=== PATIENT | female | born 1950 | race Caucasian/White ===

== ENCOUNTER 2021-08-25 18:05 | Emergency (ER) | payer MEDICARE, BC ==
[2021-08-25 18:37] LABS: BASOPHILS # (AUTO) 0.1 10^3/uL (0.0-0.1); BASOPHILS % (AUTO) 1 % (0-10); EOSINOPHILS # (AUTO) 0.3 10^3/uL (0.0-0.3); EOSINOPHILS % (AUTO) 4 % (0-10); HEMATOCRIT 36 % (35-52); HEMOGLOBIN 11.3 g/dL (11.5-16.0); LYMPHOCYTES # (AUTO) 1.2 10^3/uL (1.0-4.0); LYMPHOCYTES % (AUTO) 15 % (12-44); MEAN CORPUSCULAR HEMOGLOBIN 30 pg (25-34); MEAN CORPUSCULAR HGB CONC 32 g/dL (32-36); MEAN CORPUSCULAR VOLUME 95 fL (80-99); MEAN PLATELET VOLUME 10.7 fL (9.0-12.2); MONOCYTES # (AUTO) 0.3 10^3/uL (0.0-1.0); MONOCYTES % (AUTO) 4 % (0-12); NEUTROPHILS # (AUTO) 6.2 10^3/uL (1.8-7.8); NEUTROPHILS % (AUTO) 76 % (42-75); PLATELET COUNT 198 10^3/uL (130-400); WHITE BLOOD COUNT 8.2 10^3/uL (4.3-11.0)
[2021-08-25 19:02] LABS: ALANINE AMINOTRANSFERASE 13 U/L (0-55); ALKALINE PHOSPHATASE 117 U/L (40-136); BILIRUBIN,TOTAL < 0.2 MG/DL (0.1-1.0); BUN/CREATININE RATIO 22; CALCIUM 8.7 MG/DL (8.5-10.1); CARBON DIOXIDE 27 MMOL/L (21-32); CHLORIDE 104 MMOL/L (98-107); CREATININE SERUM 1.87 MG/DL (0.60-1.30); GFR ESTIMATED 29; GLUCOSE 308 MG/DL (70-105); POTASSIUM 4.9 MMOL/L (3.6-5.0); SODIUM 140 MMOL/L (135-145)
[2021-08-25 19:03] LABS: ALBUMIN 3.1 GM/DL (3.2-4.5); TOTAL PROTEIN 6.6 GM/DL (6.4-8.2)
--- NOTE | 2021-08-25 19:10 | Diagnostic Imaging Report ---
CHEST 1 VIEW AP/PA ONLY Indication: Shortness of air. Comparison: None available. Findings: No focal airspace disease in the visualized lungs. Please note that the posterior lower lobes are poorly evaluated by portable radiography. No pleural effusion or pneumothorax. Normal cardiomediastinal silhouette. Impression: 1. No acute cardiopulmonary process by portable radiography. Dictated by: Dictated on workstation # [id number]
[2021-08-25] MEDS ORDERED: FUROSEMIDE 40 MG/4 ML INJ (LASIX) IVP ONE (19:15)
--- NOTE | 2021-08-25 19:21 | ED Cardiac General ---
History of Present Illness General Chief Complaint: Cardiac/General Problems Stated Complaint: KNEE SWOLLEN Nursing Triage Note: Patient presents to the ED with c/o bilateral leg weakness, edema, and recent fall. EMS reports facility staff reported fall 2 days ago and now patient is not wanting to bear any weight on her legs. Also report lower extremity edema that is weeping. Patient denies pain at this time. Source: patient Exam Limitations: no limitations History of Present Illness Date Seen by Provider: August 25, 2021 Time Seen by Provider: 18:00 Initial Comments Patient is a 71 year old female with B leg weakness and c/o bilateral weakness, edema, and recent fall 2 days ago. Patient cannot stand or walk without assistance. Patient lives in assisted care living facility. Timing/Duration: 1-3 hours Severity: moderate Location: other Activities at Onset: other Prior CP/Workup: other Modifying Factors: improves with other Associated Systoms: Other Allergies and Home Medications Allergies Coded Allergies: Penicillins (Verified Allergy, Unknown, 08/25/21) Patient Home Medication List Home Medication List Reviewed: Yes Review of Systems Review of Systems Constitutional: see HPI EENTM: See HPI Respiratory: See HPI Cardiovascular: See HPI Gastrointestinal: See HPI Genitourinary: See HPI Musculoskeletal: see HPI Skin: see HPI Psychiatric/Neurological: See HPI Endocrine: See HPI Hematologic/Lymphatic: See HPI All Other Systems Reviewed Negative Unless Noted: Yes Past Zeutxet-Gfhrrt-Vnxhah Hx Patient Social History Tobacco Use?: Yes Substance use?: No Alcohol Use?: No Pt feels they are or have been: No Immunizations Up To Date First/Initial COVID19 Vaccinat: Yes Second COVID19 Vaccination Faisal: Yes COVID19 Vaccine Collator Operator: Moderna Past Medical History Surgery/Hospitalization HX: Dementia; CKD; Osteoarthritis; Gout; GERD; HTN; Chronic Constipation, Anemia, DM Physical Exam Vital Signs Vital Signs - First Documented 08/25/21 18:05 Temp 36.9 Pulse 98 Resp 20 B/P (MAP) 160/74 (102) Pulse Ox 95 O2 Delivery Room Air Capillary Refill : Less Than 3 Seconds Height, Weight, BMI Height: '" Weight: lbs. oz. kg; BMI Method: General Appearance: No Apparent Distress, WD/WN HEENT: PERRL/EOMI, TMs Normal Neck: Non Tender, Supple Respiratory: Lungs Clear, Normal Breath Sounds Cardiovascular: Regular Rate, Rhythm, Other (Bipedal edema extending to proximal calves. Mild erythema) Gastrointestinal: Soft, Other (Obesity compromising exam) Neurologic/Psychiatric: Alert, Oriented x3, engineer intern II-XII Norm as Tested Skin: Normal Color Focused Exam Sepsis Stage: Ruled Out Progress/Results/Core Measures Results/Orders Lab Results Laboratory Tests Test 08/25/21 18:33 Range/Units White Blood Count 8.2 4.3-11.0 10^3/uL Red Blood Count 3.78 L 3.80-5.11 10^6/uL Hemoglobin 11.3 L 11.5-16.0 g/dL Hematocrit 36 35-52 % Mean Corpuscular Volume 95 80-99 fL Mean Corpuscular Hemoglobin 30 25-34 pg Mean Corpuscular Hemoglobin Concent 32 32-36 g/dL Red Cell Distribution Width 13.4 10.0-14.5 % Platelet Count 198 130-400 10^3/uL Mean Platelet Volume 10.7 9.0-12.2 fL Immature Granulocyte % (Auto) 1 % Neutrophils (%) (Auto) 76 H 42-75 % Lymphocytes (%) (Auto) 15 12-44 % Monocytes (%) (Auto) 4 0-12 % Eosinophils (%) (Auto) 4 0-10 % Basophils (%) (Auto) 1 0-10 % Neutrophils # (Auto) 6.2 1.8-7.8 10^3/uL Lymphocytes # (Auto) 1.2 1.0-4.0 10^3/uL Monocytes # (Auto) 0.3 0.0-1.0 10^3/uL Eosinophils # (Auto) 0.3 0.0-0.3 10^3/uL Basophils # (Auto) 0.1 0.0-0.1 10^3/uL Immature Granulocyte # (Auto) 0.0 0.0-0.1 10^3/uL Sodium Level 140 135-145 MMOL/L Potassium Level 4.9 3.6-5.0 MMOL/L Chloride Level 104 98-107 MMOL/L Carbon Dioxide Level 27 21-32 MMOL/L Anion Gap 9 5-14 MMOL/L Blood Urea Nitrogen 41 H 7-18 MG/DL Creatinine 1.87 H 0.60-1.30 MG/DL Estimat Glomerular Filtration Rate 29 BUN/Creatinine Ratio 22 Glucose Level 308 H 70-105 MG/DL Calcium Level 8.7 8.5-10.1 MG/DL Corrected Calcium 9.4 8.5-10.1 MG/DL Total Bilirubin < 0.2 0.1-1.0 MG/DL Aspartate Amino Transf (AST/SGOT) 10 5-34 U/L Alanine Aminotransferase (ALT/SGPT) 13 0-55 U/L Alkaline Phosphatase 117 40-136 U/L Troponin I < 0.30 <0.30 NG/ML C-Reactive Protein 0.48 <0.50 MG/DL Pro-B-Type Natriuretic Peptide 789.2 H <75.0 PG/ML Total Protein 6.6 6.4-8.2 GM/DL Albumin 3.1 L 3.2-4.5 GM/DL My Orders Orders - MILTON BILLINGS DO Cbc With Automated Diff (08/25/21 18:08) Comprehensive Metabolic Panel (08/25/21 18:08) Troponin I Fs (08/25/21 18:08) Ekg Tracing (08/25/21 18:08) Crp Fs (08/25/21 18:08) Probnp Fs (08/25/21 18:08) Chest 1 View Ap/Pa Only (08/25/21 18:33) Furosemide Injection (Lasix Injection) (08/25/21 19:15) Medications Given in ED Current Medications Medications Dose Ordered Sig/Jeremias Route Start Time Stop Time Status Last Admin Dose Admin Furosemide 40 mg ONCE ONCE IVP 08/25/21 19:15 08/25/21 19:16 DC 08/25/21 19:45 40 MG Vital Signs/I&O 08/25/21 18:05 Temp 36.9 Pulse 98 Resp 20 B/P (MAP) 160/74 (102) Pulse Ox 95 O2 Delivery Room Air Blood Pressure Mean: 102 Departure Communication (Admissions) Patient with acute volume overload with renal insufficiency. Patient unable to stand or use commode without assistance and is unable to care for herself at assisted care facility. Dr. Turcios to admit [facility] Impression Primary Impression: Generalized weakness Additional Impressions: Peripheral edema Chronic renal insufficiency Disposition: XFER SHT-TRM HOSP Condition: Stable Departure-Patient Inst. Referrals: SELF,KAREN STUBBS (PCP/Family) Primary Care Physician MILTON BILLINGS DO August 25, 2021 19:21
[2021-08-25 21:30] VITALS: BP 179/81
== END 2021-08-25 21:30 | disposition short-term general hospital (02) ==
LOC: ER FS 18:11
DX: I12.9 Hypertensive chronic kidney disease with stage 1 through stage 4 chronic kidney disease, or unspecified chronic kidney disease (principal); N18.9 Chronic kidney disease, unspecified; D63.1 Anemia in chronic kidney disease; R53.1 Weakness; R60.0 Localized edema; Z91.81 History of falling
CPT/HCPCS: 36415; 51702; 71045; 80053; 83880; 84484; 85025; 86141; 93005